=== PATIENT | female | born 1975 | race Hispanic/Latino ===

== ENCOUNTER 2020-06-05 17:44 | Emergency (ER) | payer SELFPAY ==
[~2020-06-05 17:44] MED LIST: Iopamidol-370 76% 500 ML 1 ML ONE
[2020-06-05] MEDS ORDERED: Ondansetron PF 4 MG/2 ML Vial ONE (17:53)
[2020-06-05] MEDS ORDERED: Morphine 4 MG/ML VIAL ONE (17:53)
[2020-06-05 18:10] LABS: #Basophils 0.1 thou/uL (0.0-0.2); #Eosinphils 0.1 thou/uL (0.0-0.7); #Lymphocytes 2.6 thou/uL (1.20-3.40); #Monocytes 0.9 thou/uL (0.11-0.59); #Neutrophils 12.5 thou/uL (1.40-6.50); %Basophils 0.3 % (0.0-1.0); %Eosinophils 0.9 % (0.0-10.0); %Lymphocytes 16.1 % (21.0-51.0); %Monocytes 5.6 % (0.0-10.0); %Neutrophils 77.1 % (42.0-75.0); Mean Corpuscular HGB CONC 34.4 g/dL (32.0-36.0); Mean Corpuscular Hemoglobin 29.8 pg (27.0-31.0); Mean Corpuscular Volume 86.6 fL (78.0-98.0); Mean Platelet Volume 10.1 fL (7.4-10.4); Platelet Count 206 thou/uL (130-400); RBC Distribution Width 11.7 % (11.5-14.5); Red Blood Cell (RBC) Count 4.71 mill/uL (4.20-5.40); White Blood Cell (WBC) Count 16.2 thou/uL (4.8-10.8)
[2020-06-05 18:29] LABS: BHCG - Serum Negative (NEGATIVE); Pregs Control Background? CLEAR/WHITE (CLR/WHITE); Pregs Control Bar Appear? YES (CONTROL BAR)
[2020-06-05 18:34] LABS: ALT (SGPT) 55 U/L (8-55); AST (SGOT) 44 U/L (5-34); Alkaline Phosphatase 72 U/L (40-110); Anion Gap 17 mmol/L (10-20); BUN (Urea Nitrogen) 14 mg/dL (7.0-18.7); Bilirubin, Total 0.3 mg/dL (0.2-1.2); Calc. Creatinine Clearance 0 mL/min (70-130); Calcium 9.5 mg/dL (7.8-10.44); Carbon Dioxide 22 mmol/L (22-29); Chloride 102 mmol/L (98-107); Globulin 3.9 g/dL (2.4-3.5); Glucose 213 mg/dL (70-105); Potassium 4.3 mmol/L (3.5-5.1); Protein, Total 7.9 g/dL (6.0-8.3); Sodium 137 mmol/L (136-145)
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
--- NOTE | 2020-06-05 20:47 | RAD ---
Exam:Right foot 3 views HISTORY: Pain COMPARISON: None FINDINGS: Lisfranc alignment is maintained. Joint spaces are preserved. No fracture, cortical irregul arity or periosteal reaction. Hypertrophy of the calcaneus at the plantar aponeurosis. Correlate for plantar fasciitis. IMPRESSION: No evidence of fracture or dislocation.
[2020-06-05] MEDS ORDERED: Boostrix 0.5 ML (Tdap) VIAL ONE (20:50)
[2020-06-05] MEDS ORDERED: Acetaminophen 500 MG TAB ONE (21:30)
[2020-06-05] MEDS ORDERED: Bacitracin 1 PK ONE (21:33)
== END 2020-06-05 21:38 | disposition home or self-care (01) ==
LOC: ERS 17:44
DX: S13.9XXA Sprain of joints and ligaments of unspecified parts of neck, initial encounter (principal); S80.11XA Contusion of right lower leg, initial encounter; S40.022A Contusion of left upper arm, initial encounter; S91.202A Unspecified open wound of left great toe with damage to nail, initial encounter; E11.9 Type 2 diabetes mellitus without complications; E78.5 Hyperlipidemia, unspecified; I10 Essential (primary) hypertension; Z79.84 Long term (current) use of oral hypoglycemic drugs; Z79.899 Other long term (current) drug therapy; V49.9XXA Car occupant (driver) (passenger) injured in unspecified traffic accident, initial encounter
CPT/HCPCS: 70450; 70486; 71260; 72125; 74177; 80053; 84703; 85025; 90471; 90715; 96374; 96375; G0390; J2270; J2405; Q9967